=== PATIENT | female | born 1970 | race Caucasian/White ===

== ENCOUNTER 2019-07-01 19:09 | Emergency (ER) | payer OTHER, SELFPAY ==
[2019-07-01 19:16] VITALS: BP 155/80; PULSE 78; RESP 18; TEMP 36.7; O2SAT 96
--- NOTE | 2019-07-01 19:24 | ED.WOUNDLAC ---
HPI - Wound/Laceration General Chief Complaint: Wound/Laceration Stated Complaint: head wound Time Seen by Provider: 07/01/19 19:17 Source: patient and RN notes reviewed Mode of arrival: ambulatory Limitations: no limitations History of Present Illness HPI narrative: Pt is a 49 y/o female who presents to the ED with c/o head injury happening this evening. She notes that a piece of wooden 4 x 4 fell and struck the top of her head just prior to her arrival to the ED this evening. Pt states that she sustained a laceration on the anterior aspect of her occipital scalp, but denies any LOC. She also reports posterior neck pain, but denies any CP, ABD pain, or other injuries. Location: scalp Place: home Context: accidental Associated symptoms: pain (posterior neck pain) and other (laceration on anterior aspect of occipital scalp) Review of Systems Review of Systems: All systems reviewed & are unremarkable except as noted in HPI and below Cardiovascular: Cardiovascular: Denies chest pain Gastrointestinal: Gastrointestinal: Denies abdominal pain Musculoskeletal: Musculoskeletal: Reports neck pain (posterior neck pain) Integumentary/Breasts: Skin/Breast: Reports wounds (laceration on anterior aspect of occipital scalp) Neurologic: Reports other (Reports: head injury. Denies: LOC) [facility] Past Medical History Medical History Healthy female adult Surgical History Surgical History History of ankle surgery rt ankle Social History Social History Smoking status: Never smoker Exam Narrative: Exam Narrative: APPEARANCE: No acute distress, nontoxic, resting in bed EYES: EOMI HEENT: Normocephalic, 3.5 cm laceration over superior scalp that is linear and deep with no foreign bodies and mild venous bleeding, no facial tenderness, TMs clear bilaterally nares patent oromucosa moist Neck: Supple, nontender to palpation full range of motion without pain RESPIRATORY: No respiratory distress Clear to auscultation bilaterally with no rhonchi wheezing or rales. CARDIOVASCULAR: Regular rate and rhythm without murmurs rubs or gallops. ABDOMINAL: Soft, nontender, MUSCULOSKELETAl: Moves all extremities. No clubbing, cyanosis or edema. NEURO: Awake and alert x 3. Following commands, speech normal, no focal deficits SKIN:: Warm, dry. No rashes lesions or abrasions PSYCHIATRIC: Normal affect/mood, Course Course Emergency Course: Discussed with patient results of workup and diagnosis. Discussed need for follow-up with primary care, proper use of medication, and reasons to return to the emergency department. Patient understands and agrees to current treatment plan Vital Signs Vital signs: Vital Signs Temperature 98.0 F 07/01/19 19:16 Pulse Rate 78 07/01/19 19:16 Respiratory Rate 18 07/01/19 19:16 Blood Pressure 155/80 H 07/01/19 19:16 Pulse Oximetry 96 07/01/19 19:16 Temperature 98.0 F 07/01/19 19:16 Pulse Rate 78 07/01/19 19:16 Respiratory Rate 18 07/01/19 19:16 Blood Pressure 155/80 H 07/01/19 19:16 Pulse Oximetry 96 07/01/19 19:16 Procedures Laceration Laceration 1: Site: scalp Size (cm): 3.5 Description: linear Pre-repair: wound explored and irrigated extensively ====== Skin Level ====== Skin layer closed with: kinza (5 kinza) ====== Subcutaneous Layer ====== ====== Muscle Layer ====== ====== Tendon Layer ====== Discharge Plan Discharge Clinical Impression: Laceration of scalp Patient Disposition: Home, Self-Care Condition: Stable Instructions: Antibiotic Form, Laceration (DC) Additional Instructions: Return for bleeding from the wound, sign of infection or any other symptoms of concern. Your kinza need to be removed in 7 to 10 days he may go to your physician return to emergency de
== END 2019-07-01 19:49 | disposition home or self-care (01) ==
PROVIDERS: Emergency Provider Emergency Medicine; PCP Family Medicine
DX: S01.01XA Laceration without foreign body of scalp, initial encounter (principal); W20.8XXA Other cause of strike by thrown, projected or falling object, initial encounter
CPT/HCPCS: 12002; 99283

== ENCOUNTER → 2020-09-01 06:28 | Outpatient (CLI) | payer OTHER, SELFPAY ==
[2020-09-02 18:42] LABS: SARS-CoV-2 RNA PCR Negative
== END ==
PROVIDERS: PCP Family Medicine; Visit Provider Obstetrics & Gynecology
DX: Z20.822 Contact with and (suspected) exposure to COVID-19 (principal)
CPT/HCPCS: C9803; U0003; U0005

== ENCOUNTER 2021-04-05 14:42 | Outpatient (CLI) | payer BC, SELFPAY ==
--- NOTE | ~2021-04-05 | MM_ITS ---
EXAMINATION: MM screening anita BI w amarjit HISTORY: Screening mammogram TECHNIQUE: Craniocaudal and mediolateral oblique 3-D tomosynthesis images were obtained and synthetic 2-D images were generated. CAD analysis was submitted and interpreted. COMPARISON: No prior mammogram is available for comparison at this institution. BREAST PARENCHYMAL COMPOSITION: The breasts are extremely dense, which lowers the sensitivity of mamm ography. FINDINGS: There is no evidence of suspicious mass, calcification, or architectural distortion to sugg est malignancy in either breast. IMPRESSION: 1. No mammographic evidence of malignancy. 2. Recommend routine screening mammography in one year. BI-RADS Category 1: Negative Reviewed, dictated and finalized at location A. [employer]
== END 2021-04-05 14:43 | disposition home or self-care (01) ==
LOC: ANHIMG 14:44
PROVIDERS: PCP Family Medicine; Visit Provider Physician Assistant Medical
DX: Z12.31 Encounter for screening mammogram for malignant neoplasm of breast (principal)
CPT/HCPCS: 77063; 77067

== ENCOUNTER 2024-03-06 00:42 | Inpatient (IN) | payer BC, SELFPAY ==
[2024-03-06] VITALS (27 sets, daily range): BP systolic 79–139; BP diastolic 54–90; PULSE 39–79; RESP 12–18; TEMP 36.2–36.7; O2SAT 96–100; BMI 23.2
--- NOTE | 2024-03-06 | ECHO_ITS ---
Patient Info Name: Elizabeth Wick Age: 54 years : 1970 Gender: Female Ht: 66 in Wt: 143 lbs BSA: 1.74 m2 HR: 50 bpm BP: 115 / 73 mmHg Technical Quality: Good Exam Date: 03/06/2024 2:20 PM Exam Location: Echo Lab Patient Status: Inpatient Admit Date: 03/06/2024 Staff Ordering Physician: Ankita [employer] Internship: Erasmo Yip RDCS Attending Provider: Smooth Walton MD Referring Physician: Teresa CEDILLO; Exam Type: CA echo doppler color flow Study Info Indications - SYNCOPE Complete two-dimensional, color flow and Doppler transthoracic echocardiogram is performed. Summary 1. Complete two-dimensional, color flow and Doppler transthoracic echocardiogram is performed. 2. The left ventricle is normal in size and systolic function the left ventricular ejection fraction is visually estimated to be 60-65%. 3. The right ventricle is normal in size and systolic function. 4. There is no significant valvular disease. Left Ventricle The left ventricle is normal in size and systolic function the left ventricular ejection fraction is visually estimated to be 60-65%. Right Ventricle The right ventricle is normal in size and systolic function. Left Atria The left atrium is normal in size. Right Atria The right atrium is normal in size. Atrial Septum The atrial septum visually is intact. Aortic Valve The aortic valve is trileaflet and opens well. There is no aortic regurgitation. Pulmonic Valve The pulmonic valve is not well visualized. There is no color Doppler evidence of pulmonic valve regurgitation. Mitral Valve The mitral valve leaflets are sclerotic. There is trace mitral regurgitation. Tricuspid Valve The tricuspid valve is grossly normal. There is trace tricuspid regurgitation. Pericardium/Pleural Pericardium is normal in appearance with no evidence for significant pericardial effusion. Inferior Vena Cava Dilated inferior vena cava with >50% collapse upon inspiration consistent with elevated right atrial pressure, 10 mmHg. Aorta The aortic root at the level of the sinus of Valsalva measures 2.8 cm in diameter. Left Ventricular Outflow Tract Name Value Normal LVOT 2D LVOT Diameter 1.8 cm LVOT Doppler LVOT Peak Gradient 4 mmHg LVOT Mean Gradient 2 mmHg LVOT VTI 23 cm LVOT VTI/AV VTI Ratio 0.8 LVOT Stroke Volume 57 ml LVOT CO 2.8 l/min LVOT CI 1.6 l/min/m2 Pulmonic Valve Name Value Normal RVOT Doppler RVOT Peak Gradient 2 mmHg PV Doppler PV Peak Gradient 2 mmHg Mitral Valve Name Value Normal MV Doppler MV Peak Gradient 5 mmHg MV Mean Gradient 1 mmHg MV Decel Warren 440 cm/s2 MV PHT 57 ms MV Area (PHT) 3.8 cm2 4.0-5.0 MV Area (Cont Eq VTI) 1.4 cm2 MV Diastolic Function MV E Peak Velocity 87 cm/s MV A Peak Velocity 70 cm/s MV E/A 1.2 MV Decel Time 198 ms MV Annular TDI MV E/e' (Septal) 7.8 <=8.0 MV E/e' (Lateral) 8.5 <=8.0 MV E/e' (Average) 8.2 Tricuspid Valve Name Value Normal TV Regurgitation Doppler TR Peak Velocity 253 cm/s TR Peak Gradient 26 mmHg Estimated PAP/RSVP RA Pressure 10 mmHg <=5 PA Systolic Pressure 36 mmHg <36 RV Systolic Pressure 36 mmHg <36 Aorta Name Value Normal Ascending Aorta Ao Root Diameter (MM) 3.3 cm Ao Root Diam Index (MM) 1.9 cm/m2 Aortic Valve Name Value Normal AV Doppler AV Peak Velocity 122 cm/s AV Peak Gradient 6 mmHg AV Mean Gradient 4 mmHg AV VTI 28 cm AV Area (Cont Eq VTI) 2.0 cm2 >=3.0 AV Area (Cont Eq Johnny) 2.0 cm2 AV Regurgitation 2D LVOT Area 2.5 cm2 Ventricles Name Value Normal LV Dimensions 2D/MM IVS Diastolic Thickness (2D) 0.8 cm 0.6-1.0 LVID Diastole (2D) 3.9 cm 3.8-5.2 LVIW Diastolic Thickness (2D) 1.3 cm 0.6-0.9 LVID Systole (2D) 2.6 cm 2.2-3.5 LVOT Diameter 1.8 cm LV Mass (2D Cubed) 127.08 g 67.00-162.00 LV Mass Index (2D Cubed) 73 g/m2 43-95 Relative Wall Thickness (2D) 0.65 LV Fractional Shortening/Ejection Fraction 2D/MM LV Fractional Shortening (2D) 33 % 27-45 LV EF (2D Teicholz) 62 % 54-74 LV Diastolic Volume (4C MOD) 57 ml LV EF (4C MOD) 61 % LV Diastolic Volume (2C MOD) 51 ml LV EF (2C MOD) 54 % LV Diastolic Volume (BP MOD) 54 ml 46-106 LV Diastolic Volume Index (BP MOD) 31 ml/m2 29-61 LV Systolic Volume (BP MOD) 23 ml 14-42 LV Systolic Volume Index (BP MOD) 13 ml/m2 8-24 LV EF (BP MOD) 57 % 54-74 LV Diastolic Length (4C) 6.7 cm LV Systolic Length (4C) 5.6 cm LV Stroke Volume (4C MOD) 35 ml Atria Name Value Normal LA Dimensions LA Dimension (MM) 3.1 cm 2.7-3.8 LA Volume (4C A-L) 38 ml LA Volume (BP A-L) 37 ml RA Dimensions RA Area (4C) 11.4 cm2 <=18.0 Report Signatures
--- NOTE | ~2024-03-06 | XR_ITS ---
Clinical Indication: Syncope PA and lateral views of the chest: Comparison: None Findings: The lungs are clear, without evidence of focal consolidation or pleural effusion. Cardiome diastinal silhouette is within normal limits. Bones and soft tissues are unremarkable. Impression: Normal chest. Reviewed, dictated and finalized at [facility] [place] [facility]. CTOR TRANSITION Impression: Normal chest.
--- NOTE | ~2024-03-06 | CT_ITS ---
Clinical Indication: Syncope, pulmonary embolus, abdominal pain CT Scan of the Chest, Abdomen, and Pelvis with Contrast: Technique: Contiguous sections were acquired throughout the chest, abdomen, and pelvis after intraven ous administration of 100 cc of Omnipaque 350. Dose reduction technique was used on this scan by uti dannying automated exposure control and iterative reconstruction technique. The dose-length product (DL P) was 592.37 mGy-cm. Findings: There is no evidence of any significant mediastinal, hilar or axillary lymphadenopathy. The mediastin al soft tissues appear normal. No pulmonary embolus. No aortic aneurysm or dissection. There is no evidence of pleural or pericardial effusion. The lungs are clear. No pulmonary nodules or infiltrates are noted. The liver, spleen, pancreas, gallbladder, adrenals and kidneys are within normal limits. No evidence of aortic aneurysm. No lymphadenopathy. No bowel obstruction or bowel wall thickening. There is no evidence to suggest acute appendicitis. Urinary bladder is unremarkable. No pelvic mass seen. No ascites. Impression: No significant abnormalities seen. Reviewed, dictated and finalized at [facility]. LE CUTTER Impression: No significant abnormalities seen.
--- NOTE | ~2024-03-06 | CT_ITS ---
Non-contrast Head CT History: Syncope Technique: Axial non-contrast imaging of the brain was performed. Dose reduction technique was used on this scan by utilizing automated exposure control and iterative reconstruction technique. The dose -length product (DLP) was 605.33 mGy-cm. Findings: There is no evidence of intracranial hemorrhage, mass lesion, or acute infarct. Brain par enchyma appears normal. The ventricles and subarachnoid spaces are normal in size. The calvarium ap pears normal. The visualized paranasal sinuses and mastoid air cells are clear. Impression: No significant abnormality seen. Reviewed, dictated and finalized at location . T SPRAYER Impression: No significant abnormality seen.
--- NOTE | 2024-03-06 00:43 | ECG_ITS ---
Test Date: 2024-03-06 00:56:16 Measurements Intervals [place] Rate: 53 P: 69 IN: 202 QRS: 7 QRSD: 90 T: 53 QT: 413 QTc: 389 Interpretive Statements SINUS BRADYCARDIA POSSIBLE RIGHT VENTRICULAR CONDUCTION DELAY [RSR (QR) IN V1/V2] No previous ECG available for comparison Electronically Signed On 03-06-2024 09:54:43 ELECTRICAL CAD DESIGNER by Kane Acosta M.D.
[2024-03-06 02:10] LABS: Basophils Percent Auto 0.2 % (0.2-1.2); Eosinophils Percent Auto 0.3 % (0-4.4); Hematocrit 42.6 % (37.0-47.0); Hemoglobin 13.9 g/dL (12.0-15.0); Immature Granulocyte Absolute 0.04 K/mm3 (0.00-0.031); Immature Granulocyte Percent A 0.4 % (0-0.5); Lymphocytes Absolute Auto 1.87 K/mm3 (0.9-3.2); Lymphocytes Percent Auto 17.9 % (18.3-44.2); Mean Corpuscular HGB Conc 32.6 g/dl (32-36); Mean Corpuscular Hemoglobin 28.6 pg (26-34); Mean Corpuscular Volume 87.7 fl (80-100); Mean Platelet Volume 10.9 fl (7.4-10.4); Monocytes Absolute Auto 0.6 K/mm3 (0.1-0.6); Monocytes Percent Auto 6.1 % (2.6-8.5); Neutrophils Absolute Auto 7.9 K/mm3 (1.3-6.7); Neutrophils Percent Auto 75.1 % (45.5-73.1); Platelet Count Result 236 k/mm3 (150-375); Red Blood Count 4.86 M/mm3 (4.2-5.4); Red Cell Distribution Width 12.6 % (11.5-14.5); White Blood Count 10.5 K/mm3 (4.5-10.0)
[2024-03-06 02:20] LABS: Alanine Aminotransferase 17 U/L (6-35); Albumin Level 4.3 g/dL (3.5-5.1); Alkaline Phosphatase 69 U/L (38-126); Anion Gap 2 mmol/L (4-12); Aspartate Amino Transferase 23 U/L (14-36); Bilirubin,Total 0.9 mg/dL (0.2-1.3); Blood Urea Nitrogen 8 mg/dL (7-17); Calcium 8.9 mg/dL (8.4-10.2); Carbon Dioxide 30 mmol/L (22-30); Chloride 104 mmol/L (98-107); Estimated CRCL calculation 74 ml/min; Estimated Glomerular Filt Rate > 60; Glucose 100 mg/dL (65-110); Potassium 3.9 mmol/L (3.4-5.0); Sodium 136 mmol/L (137-145)
[2024-03-06] MEDS: SODIUM CHLORIDE 0.9% IV 1,000 ML 999 ML IV CONT ×4 (02:49→05:44)
[2024-03-06 02:55] LABS: Lipase 97 U/L (23-300); Magnesium 2.1 mg/dL (1.6-2.3)
[2024-03-06 03:08] LABS: Troponin I < 0.012 ng/mL (0.000-0.034)
[2024-03-06 03:14] LABS: Lactic Acid Reflex 0.8 mmol/L (0.7-2.0)
[2024-03-06 03:26] LABS: Procalcitonin < 0.0 ng/mL
[2024-03-06 04:09] LABS: BEDSIDEPREGUCG Negative (Negative)
--- NOTE | 2024-03-06 04:20 | ED_ITS ---
HPI - General Adult General Chief complaint: Syncope Stated complaint: N/V, syncope Time Seen by Provider: 03/06/24 02:28 History of Present Illness HPI narrative: Patient 54-year-old female who presents emergency department with chief complaint of syncopal episode. Patient reports that she was in bed got up felt as though her abdomen is cramping and then of felt as though she was going to pass out and went back to the bed the patient then became unresponsive the patient states that afterwards she had an episode of vomiting the patient also reports she had a discomfort feeling in her chest with this as well. Related Data Allergies Allergy/AdvReac Type Severity Reaction Status Date / Time ciprofloxacin [From Cipro] Allergy Hives Verified 03/06/24 02:12 metronidazole [From Flagyl] Allergy Hives Verified 03/06/24 02:12 Review of Systems Review of Systems: A 10 system review of systems was completed on the patient and is negative except for what is stated in the HPI. Nursing and ancillary documentation was reviewed. [facility] Past Medical History Medical History (Updated 03/06/24 @ 05:34 by Smooth Casas MD) Healthy female adult Surgical History Surgical History History of ankle surgery rt ankle Social History Social History Smoking status: Never smoker Exam Narrative: GENERAL: Well-appearing, well-nourished, and in no acute distress. HEAD: Normocephalic, atraumatic. EYES: PERRLA and EOMI. ENT: Nares clear, no rhinorrhea or epistaxis. Mucous membranes moist. NECK: Supple. CHEST: Clear to auscultation. No respiratory distress. HEART: Bradycardic rate and rhythm. No murmur heard. Normal peripheral pulses. ABDOMEN: Soft, nontender, nondistended, normal active bowel sounds. EXTREMITIES: Normal range of motion. No edema. SKIN: Warm, dry, no rash. NEURO: No focal deficits. Alert and oriented x3. PSYCH: Normal mood and affect. Course Vital Signs Vital signs: Vital Signs Temperature 36.4 C L 03/06/24 00:47 Pulse Rate 58 L 03/06/24 00:47 Respiratory Rate 18 03/06/24 00:47 Blood Pressure 106/66 03/06/24 00:47 Pulse Oximetry 100 03/06/24 00:47 Oxygen Delivery Room Air 03/06/24 00:47 Temperature 36.2 C L 03/06/24 05:27 Pulse Rate 39 L 03/06/24 05:29 Respiratory Rate 17 03/06/24 05:27 Blood Pressure 104/63 03/06/24 05:27 Pulse Oximetry 100 03/06/24 05:27 Oxygen Delivery Room Air 03/06/24 02:09 Medical Decision Making MDM Narrative Medical decision making narrative: Differential diagnosis includes intra-abdominal infection, vasovagal syncope, cardiogenic syncope, pulmonary embolism EKG shows sinus bradycardia with a rate of 53 CT head showed no acute abnormality CTA chest with abdomen pelvis showed no evidence of pulmonary embolism no acute intra-abdominal pathology Vital Signs Vital Signs: Vital Signs Temperature 36.4 C L 03/06/24 00:47 Pulse Rate 58 L 03/06/24 00:47 Respiratory Rate 18 03/06/24 00:47 Blood Pressure 106/66 03/06/24 00:47 Pulse Oximetry 100 03/06/24 00:47 Oxygen Delivery Room Air 03/06/24 00:47 Temperature 36.2 C L 03/06/24 05:27 Pulse Rate 39 L 03/06/24 05:29 Respiratory Rate 17 03/06/24 05:27 Blood Pressure 104/63 03/06/24 05:27 Pulse Oximetry 100 03/06/24 05:27 Oxygen Delivery Room Air 03/06/24 02:09 Lab Data 03/06/24 02:00 03/06/24 02:00 Labs: Lab Results 03/06/24 03/06/24 03/06/24 Range/Units 02:00 02:56 04:04 WBC 10.5 H (4.5-10.0) K/mm3 RBC 4.86 (4.2-5.4) M/mm3 Hgb 13.9 (12.0-15.0) g/dL Hct 42.6 (37.0-47.0) % MCV 87.7 (80-100) fl MCH 28.6 (26-34) pg MCHC 32.6 (32-36) g/dl RDW 12.6 (11.5-14.5) % Plt Count 236 (150-375) k/mm3 MPV 10.9 H (7.4-10.4) fl Immature Gran % (Auto) 0.4 (0-0.5) % Neut % (Auto) 75.1 H (45.5-73.1) % Lymph % (Auto) 17.9 L (18.3-44.2) % [place] % (Auto) 6.1 (2.6-8.5) % Eos % (Auto) 0.3 (0-4.4) % Baso % (Auto) 0.2 (0.2-1.2) % Lymph # (Auto) 1.87 (0.9-3.2) K/mm3 [place] # (Auto) 0.6 (0.1-0.6) K/mm3 Eos # (Auto) 0.0 (0-0.3) K/mm3 Baso # (Auto) 0.0 (0.0-0.1) K/mm3 Abs Immat Gran (auto) 0.04 H (0.00-0.031) K/mm3 Absolute Neuts (auto) 7.9 H (1.3-6.7) K/mm3 Absolute Nucleated RBC 0.000 (0.0-0.012) K/mm3 Nucleated RBC % 0.0 (0.0-0.2) % Sodium 136 L (137-145) mmol/L Potassium 3.9 (3.4-5.0) mmol/L Chloride 104 (98-107) mmol/L Carbon Dioxide 30 (22-30) mmol/L Anion Gap 2 L (4-12) mmol/L BUN 8 (7-17) mg/dL Creatinine 0.70 (0.7-1.0) mg/dL Estim Creat Clear Calc 74 ml/min Estimated GFR > 60 (59 - ) Glucose 100 (65-110) mg/dL Lactic Acid 0.8 (0.7-2.0) mmol/L Calcium 8.9 (8.4-10.2) mg/dL Magnesium 2.1 (1.6-2.3) mg/dL Total Bilirubin 0.9 (0.2-1.3) mg/dL AST 23 (14-36) U/L ALT 17 (6-35) U/L Alkaline Phosphatase 69 (38-126) U/L Troponin I < 0.012 (0.000-0.034) ng/mL Total Protein 7.0 (6.3-8.2) g/dL Albumin 4.3 (3.5-5.1) g/dL Lipase 97 (23-300) U/L Procalcitonin < 0.0 ng/mL Urine Color Yellow (Yellow) Urine Appearance Clear (Clear) Urine pH 5.0 (5.0-9.0) Ur Specific [place] > 1.045 H (1.001-1.035) Urine Protein Negative (Negative) mg/dL Urine Glucose (UA) Negative (Negative) mg/dL Urine Ketones Negative (Negative) mg/dL Ur Blood (Man) Negative (Negative) Urine Nitrate Positive H (Negative) Urine Bilirubin Negative (Negative) Urine Urobilinogen 0.2 (<2.0) mg/dL Add Ur Microanalysis Reviewed Leukocyte Esterase Rfl Trace H (Negative) DENNIS/UL Urine RBC 0-2 (0-2) /hpf Urine WBC 11-20 H (0-3) /hpf Ur Squamous Epith Cells Moderate (Few) /hpf Urine Bacteria 4+ H /hpf Urine Casts 0-2 POC Urine HCG, Qual (Negative) 03/06/24 Range/Units 04:06 WBC (4.5-10.0) K/mm3 RBC (4.2-5.4) M/mm3 Hgb (12.0-15.0) g/dL Hct (37.0-47.0) % MCV (80-100) fl MCH (26-34) pg MCHC (32-36) g/dl RDW (11.5-14.5) % Plt Count (150-375) k/mm3 MPV (7.4-10.4) fl Immature Gran % (Auto) (0-0.5) % Neut % (Auto) (45.5-73.1) % Lymph % (Auto) (18.3-44.2) % [place] % (Auto) (2.6-8.5) % Eos % (Auto) (0-4.4) % Baso % (Auto) (0.2-1.2) % Lymph # (Auto) (0.9-3.2) K/mm3 [place] # (Auto) (0.1-0.6) K/mm3 Eos # (Auto) (0-0.3) K/mm3 Baso # (Auto) (0.0-0.1) K/mm3 Abs Immat Gran (auto) (0.00-0.031) K/mm3 Absolute Neuts (auto) (1.3-6.7) K/mm3 Absolute Nucleated RBC (0.0-0.012) K/mm3 Nucleated RBC % (0.0-0.2) % Sodium (137-145) mmol/L Potassium (3.4-5.0) mmol/L Chloride (98-107) mmol/L Carbon Dioxide (22-30) mmol/L Anion Gap (4-12) mmol/L BUN (7-17) mg/dL Creatinine (0.7-1.0) mg/dL Estim Creat Clear Calc ml/min Estimated GFR (59 - ) Glucose (65-110) mg/dL Lactic Acid (0.7-2.0) mmol/L Calcium (8.4-10.2) mg/dL Magnesium (1.6-2.3) mg/dL Total Bilirubin (0.2-1.3) mg/dL AST (14-36) U/L ALT (6-35) U/L Alkaline Phosphatase (38-126) U/L Troponin I (0.000-0.034) ng/mL Total Protein (6.3-8.2) g/dL Albumin (3.5-5.1) g/dL Lipase (23-300) U/L Procalcitonin ng/mL Urine Color (Yellow) Urine Appearance (Clear) Urine pH (5.0-9.0) Ur Specific [place] (1.001-1.035) Urine Protein (Negative) mg/dL Urine Glucose (UA) (Negative) mg/dL Urine Ketones (Negative) mg/dL Ur Blood (Man) (Negative) Urine Nitrate (Negative) Urine Bilirubin (Negative) Urine Urobilinogen (<2.0) mg/dL Add Ur Microanalysis Leukocyte Esterase Rfl (Negative) DENNIS/UL Urine RBC (0-2) /hpf Urine WBC (0-3) /hpf Ur Squamous Epith Cells (Few) /hpf Urine Bacteria /hpf Urine Casts POC Urine HCG, Qual Negative (Negative) Discharge Plan Discharge Clinical Impression: Syncope, Bradycardia, UTI (urinary tract infection) Patient Disposition: Still a Patient Condition: Stable Prescriptions: No Action ibuprofen [IBU] 600 mg tablet 600 mg PO Q6H PRN (Reason: pain) Qty: 20 0RF Follow-up/Referrals: Tyler,David Cleveland MD [Primary Care Provider] - Time of Disposition: 05:33
[2024-03-06 04:30] LABS: Add Urine Microscopic? YES; Appearance Urine Clear (Clear); Bacteria Urine 4+ /hpf; Bilirubin Urine Negative (Negative); Blood Urine Negative (Negative); Color Urine Yellow (Yellow); Glucose Urine UA Negative (Negative); Ketones Urine Negative (Negative); Leukocyte Esterase Ur Trace LEU/UL (Negative); Need Manual Microscopic Reviewed; Nitrate Urine Positive (Negative); Non Pathogenic Casts 0-2; Protein Urine Negative (Negative); RBC Urine 0-2 /hpf (0-2); Specific Grav Ur > 1.045 (1.001-1.035); Squamous Epithelial Cell Urine Moderate /hpf (Few); Urobilinogen Urine 0.2 mg/dL (<2.0)
--- NOTE | 2024-03-06 04:53 | PC.NURSE ---
Patient's blood pressure was 79/54 (63), notified EDP Dr. Casas who VRBO 1L NS bolus.
[2024-03-06] MEDS: SODIUM CHLORIDE 0.9% IV 1,000 ML 125 ML IV CONT (05:49)
--- NOTE | 2024-03-06 06:43 | ECG_ITS ---
Test Date: 2024-03-06 07:57:19 Measurements Intervals [place] Rate: 40 P: 66 IA: 199 QRS: 14 QRSD: 94 T: 54 QT: 461 QTc: 381 Interpretive Statements SINUS BRADYCARDIA LOW QRS VOLTAGE IN PRECORDIAL LEADS [QRS DEFLECTION < 1.0 mV IN CHEST LEADS] INCOMPLETE RIGHT BUNDLE BRANCH BLOCK [90+ ms QRS DURATION, TERMINAL R IN V1/V2, 40+ ms S IN I/aVL/V4/V5/V6] WARNING: DATA QUALITY MAY AFFECT INTERPRETATION No previous ECG available for comparison Electronically Signed On 03-06-2024 09:55:49 PUBLIC WELFARE DIRECTOR by Kane Acosta M.D.
--- NOTE | 2024-03-06 07:15 | PM.IMHP ---
H&P: HPI History of Present Illness Date/Time: 03/06/24 07:15 Chief Complaint: Patient 54-year-old female who presents emergency department with chief complaint of syncopal episode. Patient reports that she was in bed got up felt as though her abdomen is cramping and then of felt as though she was going to pass out and went back to the bed the patient then became unresponsive the patient states that afterwards she had an episode of vomiting the patient also reports she had a discomfort feeling in her chest with this as well. Patient was evaluated at the bedside. Currently patient is IMU and denies any chest pain back, palpitation, shortness of breath, abdominal pain. No evidence of hypotension,orthostatic hypotension,dyspnea. AAO x4. Overall she is a healthy 54-year-old female with no significant past medical history other than ADHD. Patient was admitted December, in [facility] for diverticulitis which was managed medically. During the time of hospitalization she was diagnosed with low blood pressure. Yesterday patient had a normal routine and went to bed around 9 p.m.. Suddenly she woke up around midnight because of abdominal cramping, but her pain she was about to go to bathroom and lost consciousness. She does not remember anything after that. Patient denies any seizure-like episodes are past medical history of any seizures. No evidence of urinary or fecal incontinence, tongue biting. While during evaluation occasionally in the monitor she goes below 40 the heart rate. The repeat EKG shows heart rate of 40. Patient received fluids in the ED. currently the fluids has been stopped and we will monitor her blood pressure. Extremities are not pale. Will monitor UO. Patient takes Adderall which indeed can cause high blood pressure and increased heart rate. Troponin were negative CT chest/abdomen/pelvis shows no significant abnormality CT head shows no significant abnormality EKG shows sinus bradycardia.Personal interpretation no evidence of wide QRS or junctional escape rhythm UA positive for leukocyte esterase and nitrate Lab shows mild leukocytosis PMFSH Past Medical History Medical History Healthy female adult Surgical History Surgical History History of ankle surgery rt ankle Social History Social History (Reviewed 03/06/24 @ 12:03 by MODESTO Friend Smoking status: Current every day smoker Additional smoking assessment comments: Vapes - a cartridge a day Alcohol intake: never Substance use type: marijuana Other substance usage details: smoke at night - 2-3 hits before bed Do You Feel Safe in your Home?: Yes Lack of Transportation: No Lack of Food: Never True Current Housing: I Have Housing Concerned About Future Housing: No Difficulty Paying Gas/Electric Bills: No Difficulty Paying for Meds: No Currently Unemployed: No Education: Decline to Answer Difficulty w/ Childcare or Family Care: No Spiritual care concerns: No Meds Home Medications and Allergies Home Medications Medication Instructions Recorded Confirmed Type cyanocobalamin (vitamin B-12) 1,000 mcg subcut MONTHLY 03/06/24 03/06/24 History 1,000 mcg/mL injection solution dextroamphetamine-amphetamine 20 20 mg PO BID 03/06/24 03/06/24 History mg tablet Allergies Allergy/AdvReac Type Severity Reaction Status Date / Time ciprofloxacin [From Cipro] Allergy Hives Verified 03/06/24 02:12 metronidazole [From Flagyl] Allergy Hives Verified 03/06/24 02:12 Vital Signs Vital Signs - 24 hr 03/06/24 00:47 03/06/24 02:09 03/06/24 02:09 Temperature 97.5 F L Pulse Rate 58 L 62 Respiratory Rate 18 Blood Pressure 106/66 Pulse Oximetry 100 100 Oxygen Delivery Room Air Room Air 03/06/24 02:19 03/06/24 02:20 03/06/24 02:20 Temperature Pulse Rate 57 L 59 L 79 Respiratory Rate Blood Pressure 99/71 L 92/62 L 86/63 L Pulse Oximetry Oxygen Delivery 03/06/24 03:37 03/06/24 03:57 03/06/24 03:57 Temperature 97.8 F Pulse Rate 43 L 65 53 L Respiratory Rate 16 Blood Pressure 91/63 L 101/65 115/69 Pulse Oximetry 100 Oxygen Delivery 03/06/24 03:58 03/06/24 04:34 03/06/24 04:53 Temperature 97.8 F Pulse Rate 63 48 L Respiratory Rate 14 Blood Pressure 111/90 89/55 L 79/54 L Pulse Oximetry 100 Oxygen Delivery 03/06/24 05:27 03/06/24 05:29 03/06/24 06:58 Temperature 97.2 F L Pulse Rate 44 L 39 L 42 L Respiratory Rate 17 18 Blood Pressure 104/63 100/69 Pulse Oximetry 100 98 Oxygen Delivery H&P: Results Labs Labs: Short CBC 03/06/24 Range/Units 02:00 WBC 10.5 H (4.5-10.0) K/mm3 Hgb 13.9 (12.0-15.0) g/dL Hct 42.6 (37.0-47.0) % Plt Count 236 (150-375) k/mm3 BMP 03/06/24 02:00 Sodium 136 L Potassium 3.9 Chloride 104 Carbon Dioxide 30 BUN 8 Creatinine 0.70 Glucose 100 Calcium 8.9 Cardiac Enzymes 03/06/24 Range/Units 02:00 Troponin I < 0.012 (0.000-0.034) ng/mL Liver Function 03/06/24 Range/Units 02:00 Total Bilirubin 0.9 (0.2-1.3) mg/dL AST 23 (14-36) U/L ALT 17 (6-35) U/L Alkaline Phosphatase 69 (38-126) U/L Albumin 4.3 (3.5-5.1) g/dL Urine 03/06/24 Range/Units 04:04 Urine Color Yellow (Yellow) Urine Appearance Clear (Clear) Urine pH 5.0 (5.0-9.0) Ur Specific Hatley > 1.045 H (1.001-1.035) Urine Protein Negative (Negative) mg/dL Urine Glucose (UA) Negative (Negative) mg/dL Assessment and Plan Assessment and plan (1) Syncope: Code(s): R55 - Syncope and collapse Status: Acute (2) Bradycardia: Code(s): R00.1 - Bradycardia, unspecified Status: Acute (3) UTI (urinary tract infection): Code(s): N39.0 - Urinary tract infection, site not specified Status: Acute Plan #Syncope 2/2 bradycardia versus infection #Sinus bradycardia No AV romel blocking agent Consider pacer pad EKG shows sinus bradycardia, no evidence of heart block.EKG shows sinus bradycardia.Personal interpretation no evidence of wide QRS or junctional escape rhythm indicating may respond to atropine. No evidence of hypothermia TSH is normal VWNL ECHO: The left ventricle is normal in size and systolic function the left ventricular ejection fraction is visually estimated to be 60-65%. Cardiology consulted #UTI Started ceftriaxone Mild leukocytosis Urine culture pending Hospitalist MIPS Advance Care Plan I have confirmed that the patient's Advanced Care Plan is present, code status is documented, or surrogate decision maker is listed in patient medical record.: Yes Medication Reconciliation I have utilized all available resources to obtain, update and review the patients current medications (includes all prescriptions, OTC, herbals, cannabis, and nutritional supplements).: Yes
--- NOTE | 2024-03-06 07:35 | ADMGEN ---
This patient, Elizabeth Wick, was admitted to IMU Room 207-01. Patient/family oriented to hospital policies and general routines including ID bracelet, bed and alarms, visiting hours, pain management, procedures, bathroom and other care routines, personal items, smoking policy, room service/diet, and visiting hours. Information on how to activate the Rapid Response Team has been discussed. Patient/Family are encouraged to report perceived risks to care and to ask questions if they do not understand what they are told or what they should do.
[2024-03-06 09:13] LABS: Troponin I < 0.012 ng/mL (0.000-0.034)
--- NOTE | 2024-03-06 11:49 | P.CONCA_ITS ---
Assessment and Plan Assessment and plan (1) Bradycardia: Code(s): R00.1 - Bradycardia, unspecified Status: Acute Assessment and Plan: She has sinus bradycardia. Her heart rate does drop into the 30s when she is asleep. Her heart rate when awake ranges from the 40s to 60s. EKG in telemetry review did not reveal any evidence of heart blocks or pauses. No obvious cause of sinus bradycardia has been identified, but this may be patient's normal baseline heart rate. She is hemodynamically stable and asymptomatic currently. * Check TSH * TTE will be ordered and reviewed * ApneaLink tonight * Continue continuous telemetry * Continue with IV fluids for now (2) Syncope: Code(s): R55 - Syncope and collapse Status: Acute Assessment and Plan: History is most consistent with orthostatic hypotension or perhaps vasovagal syncope. Her SBP did drop from 99 mmHg to 86 mmHg sitting to standing when orthostatic BP was checked in the ED. No arrhythmias seen on telemetry to suggest a cardiac cause for her syncope. (3) UTI (urinary tract infection): Code(s): N39.0 - Urinary tract infection, site not specified Status: Acute Assessment and Plan: On abx per hospitalist History of Present Illness History of Present Illness Consult date/time: 03/06/24 11:49 Requesting physician: Fritz De Leon APRN Consult reason: Other (bradycardia, orthostatic hypotension, syncope) Reason For Visit: Syncope/Bradycardia/Orthostatic Hypotension/UTI Narrative: Elizabeth Wick is a 54-year-old female with no significant past medical history. She presents to the hospital after having a syncopal event. Patient states she was sleeping and suddenly woke up with lower abdominal cramping and chest discomfort. She states that she felt a lot of pressure in her chest and she began belching repeatedly and subsequently felt as if she was going to vomit. When she got up to go to the bathroom she lost consciousness. This was wi tnessed by the patient's . When she did regain consciousness she vomited several times. She has not had any further syncope since her admission to the hospital and she is currently feeling well and has no complaints. She tells me that she does not know what her baseline heart rate is but she does note that her blood pressure normally runs low. She has been admitted for further evaluation of her syncope and bradycardia. Review of Systems Review of Systems: All systems reviewed & are unremarkable except as noted in HPI and below PMFSH Past Medical History Medical History Healthy female adult Surgical History Surgical History History of ankle surgery rt ankle Social History Social History Smoking status: Current every day smoker Additional smoking assessment comments: Vapes - a cartridge a day Alcohol intake: never Substance use type: marijuana Other substance usage details: smoke at night - 2-3 hits before bed Do You Feel Safe in your Home?: Yes Lack of Transportation: No Lack of Food: Never True Current Housing: I Have Housing Concerned About Future Housing: No Difficulty Paying Gas/Electric Bills: No Difficulty Paying for Meds: No Currently Unemployed: No Education: Decline to Answer Difficulty w/ Childcare or Family Care: No Spiritual care concerns: No Meds Home Medications and Allergies Home Medications Medication Instructions Recorded Confirmed Type cyanocobalamin (vitamin B-12) 1,000 mcg subcut MONTHLY 03/06/24 03/06/24 History 1,000 mcg/mL injection solution dextroamphetamine-amphetamine 20 20 mg PO BID 03/06/24 03/06/24 History mg tablet Allergies Allergy/AdvReac Type Severity Reaction Status Date / Time ciprofloxacin [From Cipro] Allergy Hives Verified 03/06/24 02:12 metronidazole [From Flagyl] Allergy Hives Verified 03/06/24 02:12 Vital Signs Vital Signs - 24 hr 03/06/24 00:47 03/06/24 02:09 03/06/24 02:09 Temperature 36.4 C L Pulse Rate 58 L 62 Respiratory Rate 18 Blood Pressure 106/66 Pulse Oximetry 100 100 Oxygen Delivery Room Air Room Air 03/06/24 02:19 03/06/24 02:20 03/06/24 02:20 Temperature Pulse Rate 57 L 59 L 79 Respiratory Rate Blood Pressure 99/71 L 92/62 L 86/63 L Pulse Oximetry Oxygen Delivery 03/06/24 03:37 03/06/24 03:57 03/06/24 03:57 Temperature 36.6 C Pulse Rate 43 L 65 53 L Respiratory Rate 16 Blood Pressure 91/63 L 101/65 115/69 Pulse Oximetry 100 Oxygen Delivery 03/06/24 03:58 03/06/24 04:34 03/06/24 04:53 Temperature 36.6 C Pulse Rate 63 48 L Respiratory Rate 14 Blood Pressure 111/90 89/55 L 79/54 L Pulse Oximetry 100 Oxygen Delivery 03/06/24 05:27 03/06/24 05:29 03/06/24 06:58 Temperature 36.2 C L Pulse Rate 44 L 39 L 42 L Respiratory Rate 17 18 Blood Pressure 104/63 100/69 Pulse Oximetry 100 98 Oxygen Delivery 03/06/24 07:41 03/06/24 07:41 03/06/24 07:42 Temperature Pulse Rate 43 L 54 L 55 L Respiratory Rate Blood Pressure 100/61 120/70 112/69 Pulse Oximetry Oxygen Delivery 03/06/24 08:00 03/06/24 08:00 03/06/24 09:00 Temperature 36.5 C 36.5 C Pulse Rate 65 72 42 L Respiratory Rate 16 18 Blood Pressure 101/65 92/57 L Pulse Oximetry 100 96 Oxygen Delivery Exam Const: General: comfortable, no acute distress, alert and awake Orientation/consciousness: patient oriented x3 HENMT: Head: normal to inspection Eyes: General: appearance normal, both eyes and all related structures Pupils: Equal, round and reactive pupils present Neck: Neck: normal visual inspection, supple and no JVD Carotids: normal carotid upstroke Resp: Effort & Inspection: normal respiratory effort Auscultation: clear to auscultation bilaterally Cardio: Rate: regular rate Rhythm: regular rhythm Heart sounds: S1 normal heart sound present, S2 normal heart sound present and no murmurs GI: Auscultation: normal bowel sounds Skin: General skin exam: normal color Neuro: General: patient oriented x3 Cranial nerves: Yes Equal, round and reactive pupils present Extrem: General: normal to inspection Psych: Appearance: grossly normal Mental Status: mental status grossly normal Results Labs and Meds 03/06/24 02:00 03/06/24 02:00 Lab results: Cardiac Enzymes 03/06/24 03/06/24 Range/Units 02:00 08:39 AST 23 (14-36) U/L Troponin I < 0.012 < 0.012 (0.000-0.034) ng/mL CBC 03/06/24 Range/Units 02:00 WBC 10.5 H (4.5-10.0) K/mm3 RBC 4.86 (4.2-5.4) M/mm3 Hgb 13.9 (12.0-15.0) g/dL Hct 42.6 (37.0-47.0) % Plt Count 236 (150-375) k/mm3 Lymph # (Auto) 1.87 (0.9-3.2) K/mm3 Ellis # (Auto) 0.6 (0.1-0.6) K/mm3 Eos # (Auto) 0.0 (0-0.3) K/mm3 Baso # (Auto) 0.0 (0.0-0.1) K/mm3 Comprehensive Metabolic Panel 03/06/24 Range/Units 02:00 Sodium 136 L (137-145) mmol/L Potassium 3.9 (3.4-5.0) mmol/L Chloride 104 (98-107) mmol/L Carbon Dioxide 30 (22-30) mmol/L BUN 8 (7-17) mg/dL Creatinine 0.70 (0.7-1.0) mg/dL Glucose 100 (65-110) mg/dL Calcium 8.9 (8.4-10.2) mg/dL AST 23 (14-36) U/L ALT 17 (6-35) U/L Alkaline Phosphatase 69 (38-126) U/L Total Protein 7.0 (6.3-8.2) g/dL Albumin 4.3 (3.5-5.1) g/dL Intake and Output 03/05/24 03/06/24 03/06/24 23:59 07:59 15:59 Intake Total 4050 360 Balance 4050 360 Intake: IV 4050 Sodium Chloride 0.9% IV 1,000 4000 ml @ 999 mls/hr IV CONT .Q1H1M STA Rx#:[id number] cefTRIAXone 1 GM/NS 50 ML 1 gm 50 In 50 ml @ 100 mls/hr IVPB ONCE STA Rx#:[id number] Oral 360 Patient Weight 03/06/24 23:59 Weight 65.3 kg
[2024-03-06 12:15] LABS: Thyroid Stimulating Hormone 0.974 uIU/mL (0.465-4.680)
[2024-03-06 13:00] LABS: Troponin I < 0.012 ng/mL (0.000-0.034)
[2024-03-06 13:47] LABS: Thyroid Stimulating Hormone Reflex 0.809 uIU/mL (0.465-4.68)
[2024-03-07] VITALS (9 sets, daily range): BP systolic 102–152; BP diastolic 57–85; PULSE 40–78; RESP 15–16; TEMP 36.3–36.6; O2SAT 99–100
[2024-03-07 07:06] LABS: Hematocrit 39.3 % (37.0-47.0); Hemoglobin 12.4 g/dL (12.0-15.0); Mean Corpuscular HGB Conc 31.6 g/dl (32-36); Mean Corpuscular Hemoglobin 28.6 pg (26-34); Mean Corpuscular Volume 90.8 fl (80-100); Mean Platelet Volume 11.4 fl (7.4-10.4); Platelet Count Result 207 k/mm3 (150-375); Red Blood Count 4.33 M/mm3 (4.2-5.4); Red Cell Distribution Width 12.8 % (11.5-14.5); White Blood Count 6.3 K/mm3 (4.5-10.0)
[2024-03-07 07:17] LABS: Alanine Aminotransferase 54 U/L (6-35); Albumin Level 3.2 g/dL (3.5-5.1); Alkaline Phosphatase 55 U/L (38-126); Anion Gap 2 mmol/L (4-12); Aspartate Amino Transferase 54 U/L (14-36); Bilirubin,Total 0.8 mg/dL (0.2-1.3); Blood Urea Nitrogen 9 mg/dL (7-17); Calcium 8.4 mg/dL (8.4-10.2); Carbon Dioxide 27 mmol/L (22-30); Chloride 112 mmol/L (98-107); Estimated CRCL calculation 74 ml/min; Estimated Glomerular Filt Rate > 60; Glucose 86 mg/dL (65-110); Potassium 4.2 mmol/L (3.4-5.0); Sodium 141 mmol/L (137-145)
[2024-03-07] MEDS: cefTRIAXone 2 GM/NS 100 ML 2 GM/100 ML BAG IVPB (08:19)
[2024-03-07 08:28] LABS: Alanine Aminotransferase 55 U/L (6-35); Albumin Level 3.2 g/dL (3.5-5.1); Alkaline Phosphatase 55 U/L (38-126); Aspartate Amino Transferase 57 U/L (14-36); Bilirubin,Total 0.8 mg/dL (0.2-1.3); Cholesterol 121 mg/dL (0-200); HDL Direct 39 mg/dL; Triglycerides 67 mg/dL (<150)
[2024-03-07 08:39] LABS: LDL Cholesterol Direct 61 mg/dL
--- NOTE | 2024-03-07 10:40 | P.PNCA_ITS ---
Progress Note: A&P Assessment and Plan (1) Bradycardia: Code(s): R00.1 - Bradycardia, unspecified Status: Acute Assessment and Plan: She has sinus bradycardia. Her heart rate does drop into the 30s when she is asleep. Her heart rate when awake ranges from the 40s to 60s. EKG in telemetry review did not reveal any evidence of heart blocks or pauses. No obvious cause of sinus bradycardia has been identified, but this may be patient's normal baseline heart rate. She is hemodynamically stable and asymptomatic currently. * TSH normal * TTE showed normal LV function, no significant valvular disease * ApneaLink with AHI of 16 - will need outpatient sleep study * OK for discharge from a cardiac perspective. Will order a 30 day playground monitor at discharge for ongoing monitoring. (2) Syncope: Code(s): R55 - Syncope and collapse Status: Acute Assessment and Plan: History is most consistent with orthostatic hypotension or perhaps vasovagal syncope. Her SBP did drop from 99 mmHg to 86 mmHg sitting to standing when orthostatic BP was checked in the ED. No arrhythmias seen on telemetry to suggest a cardiac cause for her syncope. (3) UTI (urinary tract infection): Code(s): N39.0 - Urinary tract infection, site not specified Status: Acute Assessment and Plan: On abx per hospitalist Subjective Date/time seen: 03/07/24 10:40 Interval history: Cardiology follow up visit Date of service 03/07/2024: She is feeling well this morning and has no complaints. No further syncope. Telemetry stable, sinus bradycardia. Review of Systems Review of Systems: All systems reviewed & are unremarkable except as noted in HPI and below Exam Const: General: comfortable, no acute distress, alert and awake Orientation/consciousness: patient oriented x3 HENMT: Head: normal to inspection Eyes: General: appearance normal, both eyes and all related structures Pupils: Equal, round and reactive pupils present Neck: Neck: normal visual inspection, supple and no JVD Carotids: normal carotid upstroke Resp: Effort & Inspection: normal respiratory effort Auscultation: clear to auscultation bilaterally Cardio: Rate: regular rate and bradycardic Rhythm: regular rhythm Heart sounds: S1 normal heart sound present, S2 normal heart sound present and no murmurs GI: Auscultation: normal bowel sounds Skin: General skin exam: normal color Neuro: General: patient oriented x3 Cranial nerves: Yes Equal, round and reactive pupils present Extrem: General: normal to inspection Psych: Appearance: grossly normal Mental Status: mental status grossly normal Objective Data Vital Signs Vital Signs: Vital Signs - 24 hr 03/06/24 11:53 03/06/24 12:00 03/06/24 14:00 Temperature 36.6 C Pulse Rate 50 L 44 L 43 L Respiratory Rate 16 Blood Pressure 115/73 Pulse Oximetry 99 Oxygen Delivery 03/06/24 16:00 03/06/24 16:00 03/06/24 17:51 Temperature 36.7 C Pulse Rate 42 L 44 L Respiratory Rate 16 Blood Pressure 102/55 L Pulse Oximetry 100 99 Oxygen Delivery Room Air 03/06/24 18:00 03/06/24 20:00 03/06/24 20:00 Temperature 36.6 C Pulse Rate 43 L 40 L Respiratory Rate 12 Blood Pressure 134/75 136/71 Pulse Oximetry 100 Oxygen Delivery 03/06/24 20:00 03/06/24 20:00 03/06/24 21:25 Temperature Pulse Rate Respiratory Rate Blood Pressure 135/81 139/81 Pulse Oximetry 97 Oxygen Delivery Room Air 03/06/24 20:00 03/06/24 20:00 03/06/24 22:00 Temperature Pulse Rate 41 L 49 L Respiratory Rate Blood Pressure Pulse Oximetry Oxygen Delivery Room Air 03/06/24 23:11 03/06/24 23:12 03/07/24 00:00 Temperature 36.4 C L Pulse Rate 50 L 46 L Respiratory Rate 16 Blood Pressure 105/70 Pulse Oximetry 100 Oxygen Delivery Room Air 03/07/24 02:00 03/07/24 04:00 03/07/24 04:00 Temperature Pulse Rate 42 L 41 L Respiratory Rate Blood Pressure Pulse Oximetry Oxygen Delivery Room Air 03/07/24 04:00 03/07/24 06:00 03/07/24 08:00 Temperature 36.6 C 36.3 C L Pulse Rate 53 L 40 L 46 L Respiratory Rate 15 16 Blood Pressure 102/57 L 111/63 Pulse Oximetry 99 100 Oxygen Delivery 03/07/24 08:00 03/07/24 09:21 03/07/24 09:21 Temperature Pulse Rate Respiratory Rate Blood Pressure 103/57 L 152/78 H 131/85 Pulse Oximetry Oxygen Delivery Intake/Output Intake/Output: Intake & Output 03/04/24 03/05/24 03/06/24 03/07/24 23:59 23:59 23:59 23:59 Intake Total 5240 340 Output Total 1975 Balance 3265 340 Meds/Results Medications: Active Medications Generic Name Dose Route Start Last Admin Trade Name Freq PRN Reason Stop Dose Admin Acetaminophen 650 mg 03/06/24 05:30 Acetaminophen 325 Mg Tablet PO Q4H PRN Mild Pain (1-3) or Fever Sodium Chloride 1,000 mls @ 125 mls/hr 03/06/24 05:30 03/06/24 05:49 Normal Saline Iv IV CONT 125 mls/hr .Q8H MITA Administration Ceftriaxone Sodium 2 gm in 100 mls @ 200 mls/hr 03/07/24 09:00 03/07/24 08:19 Rocephin 2 Gm/Ns 100 Ml IVPB 200 mls/hr Q24H MITA Administration Ondansetron HCl 4 mg 03/06/24 05:30 Ondansetron Inj 4 Mg/2 Ml Vial IV PUSH Q4H PRN Nausea Perflutren Lipid Microsphere 0 ml 03/06/24 12:09 Perflutren Lipid Microspheres 1.5 Ml Vial Diluted To 10 Ml Total Volume IV PUSH 03/09/24 12:09 ONCE PRN adequate visualization Protocol Radiology Results: ITS Impressions Chest X-Ray 03/06/24 06:18 Impression: Normal chest. Head CT 03/06/24 06:25 Impression: No significant abnormality seen. Chest/Abdomen/Pelvis CTA 03/06/24 06:26 Impression: No significant abnormalities seen. Labs Labs: Laboratory Results - last 24 hr 03/06/24 03/06/24 03/07/24 08:39 12:19 06:43 WBC RBC Hgb Hct MCV MCH MCHC RDW Plt Count MPV Sodium Potassium Chloride Carbon Dioxide Anion Gap BUN Creatinine Estim Creat Clear Calc Estimated GFR Glucose Calcium Total Bilirubin 0.8 Direct Bilirubin 0.0 AST 57 H ALT 55 H Alkaline Phosphatase 55 Troponin I < 0.012 Total Protein 6.0 L Albumin 3.2 L Triglycerides 67 Cholesterol 121 LDL Cholesterol Direct 61 HDL Direct 39 TSH 0.974 TSH (Reflex) 0.809 03/07/24 06:46 WBC 6.3 RBC 4.33 Hgb 12.4 Hct 39.3 MCV 90.8 MCH 28.6 MCHC 31.6 L RDW 12.8 Plt Count 207 MPV 11.4 H Sodium 141 Potassium 4.2 Chloride 112 H Carbon Dioxide 27 Anion Gap 2 L BUN 9 Creatinine 0.70 Estim Creat Clear Calc 74 Estimated GFR > 60 Glucose 86 Calcium 8.4 Total Bilirubin 0.8 Direct Bilirubin AST 54 H ALT 54 H Alkaline Phosphatase 55 Troponin I Total Protein 6.0 L Albumin 3.2 L Triglycerides Cholesterol LDL Cholesterol Direct HDL Direct TSH TSH (Reflex)
--- NOTE | 2024-03-07 15:14 | P.DS_ITS ---
DS: Admitting Diagnosis Discharge Date 03/07/2024 Admitting Diagnosis Bradycardia DS: Discharge Diagnosis Discharge Diagnosis (1) Syncope: Code(s): R55 - Syncope and collapse Status: Acute (2) Bradycardia: Code(s): R00.1 - Bradycardia, unspecified Status: Acute (3) UTI (urinary tract infection): Code(s): N39.0 - Urinary tract infection, site not specified Status: Acute Plan Please refer to hospital course for brief summary #Syncope 2/2 bradycardia versus infection #Sinus bradycardia No AV romle blocking agent Consider pacer pad EKG shows sinus bradycardia, no evidence of heart block.EKG shows sinus bradycardia.Personal interpretation no evidence of wide QRS or junctional escape rhythm indicating may respond to atropine. No evidence of hypothermia TSH is normal VWNL ECHO: The left ventricle is normal in size and systolic function the left ventricular ejection fraction is visually estimated to be 60-65%. Cardiology consulted #UTI Started ceftriaxone Mild leukocytosis Urine culture pending DS: Summary Hospital Course Hospital Course: Patient 54-year-old female who presents emergency department with chief complaint of syncopal episode. Patient reports that she was in bed got up felt as though her abdomen is cramping and then of felt as though she was going to pass out and went back to the bed the patient then became unresponsive the patient states that afterwards she had an episode of vomiting the patient also reports she had a discomfort feeling in her chest with this as well. Patient was evaluated at the bedside. Currently patient is IMU and denies any chest pain back, palpitation, shortness of breath, abdominal pain. No evidence of hypotension,orthostatic hypotension,dyspnea. AAO x4. Overall she is a healthy 54-year-old female with no significant past medical history other than ADHD. Patient was admitted December, in [facility] for diverticulitis which was managed medically. During the time of hospitalization she was diagnosed with low blood pressure. Yesterday patient had a normal routine and went to bed around 9 p.m.. Suddenly she woke up around midnight because of abdominal cramping, but her pain she was about to go to bathroom and lost consciousness. She does not remember anything after that. Patient denies any seizure-like episodes are past medical history of any seizures. No evidence of urinary or fecal incontinence, tongue biting. While during evaluation occasionally in the monitor she goes below 40 the heart rate. The repeat EKG shows heart rate of 40. Patient received fluids in the ED. currently the fluids has been stopped and we will monitor her blood pressure. Extremities are not pale. Will monitor UO. Patient takes Adderall which indeed can cause high blood pressure and increased heart rate. Troponin were negative CT chest/abdomen/pelvis shows no significant abnormality CT head shows no significant abnormality EKG shows sinus bradycardia.Personal interpretation no evidence of wide QRS or junctional escape rhythm UA positive for leukocyte esterase and nitrate Lab shows mild leukocytosis Patient does not take any AV romel blocking agents, EKG was showing sinus bradycardia no evidence of heart block. TSH was normal. Echocardiogram shows no significant abnormality. Cardiology was consult and reports no pericardial has been identified and believes it might be patient's normal baseline heart rate. Seizures heel and dynamically stable cardiology agrees with discharge with 30 day library monitor. Patient ApneaLink shows AHI of 16 requiring full sleep study as outpatient. Status at Discharge Cognitive/behavioral status at discharge: Stable Time Spent with Patient Time attestation: Total time spent providing and/or coordinating discharge services: 45 minutes Exam Narrative: GENERAL: Well-appearing, well-nourished, and in no acute distress. HEAD: Normocephalic, atraumatic. EYES: PERRLA and EOMI. ENT: Nares clear, no rhinorrhea or epistaxis. Mucous membranes moist. NECK: Supple. CHEST: Clear to auscultation. No respiratory distress. HEART: Bradycardic rate and rhythm. No murmur heard. Normal peripheral puls es. ABDOMEN: Soft, nontender, nondistended, normal active bowel sounds. EXTREMITIES: Normal range of motion. No edema. SKIN: Warm, dry, no rash. NEURO: No focal deficits. Alert and oriented x3. PSYCH: Normal mood and affect. Const: General: comfortable, no acute distress, alert and awake Orientation/consciousness: patient oriented x3 HENMT: Head: normal to inspection Eyes: General: appearance normal, both eyes and all related structures Pupils: Equal, round and reactive pupils present Neck: Neck: normal visual inspection, supple and no JVD Carotids: normal carotid upstroke Resp: Effort & Inspection: normal respiratory effort Auscultation: clear to auscultation bilaterally Cardio: Rate: regular rate and bradycardic Rhythm: regular rhythm Heart sounds: S1 normal heart sound present, S2 normal heart sound present and no murmurs GI: Auscultation: normal bowel sounds Skin: General skin exam: normal color Neuro: General: patient oriented x3 Cranial nerves: Yes Equal, round and reactive pupils present Extrem: General: normal to inspection Psych: Appearance: grossly normal Mental Status: mental status grossly normal DS: Data Data Completed and Pending Labs on day of discharge: Labs from last 24 hours 03/07/24 03/07/24 06:46 06:43 WBC 6.3 RBC 4.33 Hgb 12.4 Hct 39.3 MCV 90.8 MCH 28.6 MCHC 31.6 L RDW 12.8 Plt Count 207 MPV 11.4 H Sodium 141 Potassium 4.2 Chloride 112 H Carbon Dioxide 27 Anion Gap 2 L BUN 9 Creatinine 0.70 Estim Creat Clear Calc 74 Estimated GFR > 60 Glucose 86 Calcium 8.4 Total Bilirubin 0.8 0.8 Direct Bilirubin 0.0 AST 54 H 57 H ALT 54 H 55 H Alkaline Phosphatase 55 55 Total Protein 6.0 L 6.0 L Albumin 3.2 L 3.2 L Triglycerides 67 Cholesterol 121 LDL Cholesterol Direct 61 HDL Direct 39 Preliminary micro results at discharge 03/06/24 06:00 Blood Culture - Preliminary Blood 03/06/24 06:00 Blood Culture - Preliminary Blood Discharge Plan Discharge Attending physician on discharge: Leonardo Ding Consulting providers: Ankita Moore Discharging Clinician: Leonardo Ding Patient Disposition: Home, Self-Care Activity: as tolerated Diet: regular Discharge Instructions: Patient need outpatient sleep study. Patient will be discharged with a 30 day tele monitor. Follow-up with PCP and Cardiology within a week upon discharge In the event of dizziness, syncope, chest pain please seek immediate medical care. Patient Instructions: Antibiotic Form Stand Alone Forms: General Discharge Information Follow-up/Referrals: Ankita Moore, [employer] [Advanced Practice Nurse] - 1 Week (Asymptomatic bradycardia) Discharge Medications: Continued cyanocobalamin (vitamin B-12) 1,000 mcg/mL solution 1,000 mcg subcut MONTHLY dextroamphetamine-amphetamine 20 mg tablet 20 mg PO BID Date of admission: 03/07/24 11:00 Primary Care Provider: TylerDavid Admitting Provider: Smooth Walton Attending physician on admission: Smooth Walton Condition: Stable
== END 2024-03-07 15:37 | disposition home or self-care (01) | DRG 312 ==
LOC: ANHED 05:33 → ANHIMU 06:23
PROVIDERS: Nurse Practitioner; Admitting Provider Internal Medicine; Emergency Provider Emergency Medicine; PCP Family Medicine; Visit Provider General Practice
DX: I95.1 Orthostatic hypotension (principal); N39.0 Urinary tract infection, site not specified; R00.1 Bradycardia, unspecified; F17.290 Nicotine dependence, other tobacco product, uncomplicated
CPT/HCPCS: 36415; 70450; 71046; 71275; 74177; 80053; 80061; 80076; 81001; 81025; 83605; 83690; 83735; 84145; 84443; 84484; 85025; 85027; 87040; 87086; 87186; 93005; 93306; 94762; 96361; 96365; 96376; 99285; G0378; J0696; J7030; Q9967